=== PATIENT | female | born 1985 | race Caucasian/White ===

== ENCOUNTER 2018-11-03 18:24 | Emergency (ER) | payer OTHER ==
[~2018-11-03] VITALS: Ht 162.6 cm; Wt 77.1 kg
[2018-11-03] MEDS ORDERED: Crutch1 EACH XX (19:27)
[2018-11-03] MEDS ORDERED: Percocet 5-3251 EACH PO (19:28)
== END 2018-11-03 19:40 | disposition home or self-care (01) ==
LOC: ER 18:24
DX: S92.211A Displaced fracture of cuboid bone of right foot, initial encounter for closed fracture (principal); F90.9 Attention-deficit hyperactivity disorder, unspecified type; F17.200 Nicotine dependence, unspecified, uncomplicated; F41.9 Anxiety disorder, unspecified; Z86.718 Personal history of other venous thrombosis and embolism; Z86.711 Personal history of pulmonary embolism; Z88.1 Allergy status to other antibiotic agents; Z88.8 Allergy status to other drugs, medicaments and biological substances; W19.XXXA Unspecified fall, initial encounter
CPT/HCPCS: 73610; 73630; 96372; 99283-25; J1885